=== PATIENT | female | born 1975 | race Caucasian/White ===

== ENCOUNTER 2017-06-27 13:40 | Outpatient (CLI) | payer MEDICAID | END 2017-06-27 23:59 | disposition home or self-care (01) | LOC: LAB SPEC 13:40 | PROVIDERS: ATTEND Surgery | DX: N61.1 Abscess of the breast and nipple (principal) | CPT/HCPCS: 87070; 87077; 87186 ==

== ENCOUNTER 2018-10-26 12:55 | Outpatient (CLI) | payer MEDICAID | END 2018-10-26 23:59 | disposition home or self-care (01) | LOC: LAB SPEC 12:55 | PROVIDERS: ATTEND Surgery | DX: N61.0 Mastitis without abscess (principal) | CPT/HCPCS: 87070 ==

== ENCOUNTER 2024-12-15 09:27 | Outpatient (CLI) | payer OTHER ==
--- NOTE | 2024-12-15 12:46 | RADIOLOGY REPORT ---
CLINICAL INDICATION: SPRAIN MIDDLE FINGER COMPARISON: None TECHNIQUE: Multiplanar, multi-sequence MRI of the right hand was performed without intravenou s contrast. Contrast: None INTERPRETATION: Bones: There is no fracture. There is no marrow replacing lesion. Soft tissues: The radial and ulnar collateral ligaments are intact. The flexor and extensor tendo ns are not torn. There is fluid in the 3rd flexor tendon sheath corresponding to the marker. There is no soft tissue mass or fluid collection. IMPRESSION: Mild tenosynovitis of the 3rd flexor tendon sheath of the right hand corresponding to the marker. No tendon tear.
== END 2024-12-15 23:59 | disposition home or self-care (01) ==
LOC: MRI02 09:27
PROVIDERS: ATTEND Physician Assistant Medical
DX: S63.632A Sprain of interphalangeal joint of right middle finger, initial encounter (principal); M65.841 Other synovitis and tenosynovitis, right hand; S63.631A Sprain of interphalangeal joint of left index finger, initial encounter; S63.613A Unspecified sprain of left middle finger, initial encounter; X58.XXXA Exposure to other specified factors, initial encounter; Y93.89 Activity, other specified; Y92.89 Other specified places as the place of occurrence of the external cause; Y99.8 Other external cause status
CPT/HCPCS: 73218

== ENCOUNTER 2025-03-04 15:48 | Emergency (ER) | payer BC, OTHER ==
[~2025-03-04] VITALS: Ht 167.6 cm; Wt 88.6 kg
[2025-03-04 15:52] VITALS: BP 164/86; PULSE 94; O2SAT 98
[2025-03-04] MEDS ORDERED: CYCL-394 PO (16:42)
[2025-03-04] MEDS ORDERED: LIDO-52 TOP (16:42)
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
--- NOTE | 2025-03-04 17:12 | RADIOLOGY REPORT ---
CHEST RADIOGRAPH Indication: BACK PAIN HURT TO BREATHE IN Technique: Single frontal view of the chest was obtained COMPARISON: None FINDINGS: Lines and Tubes: None Lungs: Clear Pleura: No effusion. No pneumothorax. Cardiomediastinal contours: Unremarkable Bones: Unremarkable IMPRESSION: 1. No acute disease.
[2025-03-04 17:43] VITALS: RESP 16
[2025-03-04] MEDS: ketorolac trometh 30MG/ML vial 30 MG/ML VIAL IM ONE (17:43)
[2025-03-04 17:48] VITALS: TEMP 97.9
== END 2025-03-04 17:49 | disposition home or self-care (01) ==
LOC: ER 15:49
DX: S29.012A Strain of muscle and tendon of back wall of thorax, initial encounter (principal); Z88.0 Allergy status to penicillin; Z88.8 Allergy status to other drugs, medicaments and biological substances; Z79.899 Other long term (current) drug therapy; V98.8XXA Other specified transport accidents, initial encounter; Y93.89 Activity, other specified; Y92.89 Other specified places as the place of occurrence of the external cause; Y99.8 Other external cause status
CPT/HCPCS: 71045; 96372; 99283; J1885